=== PATIENT | female | born 1980 | race African-American/Black ===

== ENCOUNTER 2018-05-25 06:30 | Emergency (ER) | payer SELFPAY ==
[~2018-05-25] VITALS: Ht 175.3 cm; Wt 63.6 kg
[2018-05-25] MEDS ORDERED: KETO10TAB PO (07:24)
[2018-05-25] MEDS ORDERED: ACET30TAB PO (07:24)
[2018-05-25] MEDS ORDERED: ACETAMINOPH W/CODEINE #3 TAB UD PO ONE (07:30)
[2018-05-25 07:50] VITALS: BP 130/75
[2018-05-25] MEDS ORDERED: NORCOTAB PO (07:54)
--- NOTE | 2018-05-25 08:01 | REP ---
Left ribs for views: There is no rib fracture or other rib abnormality. PA chest: There is no pneumothorax, hemothorax or pulmonary contusion. There is no pleural thickening. There is a 3 mm lung nodule in the left costophrenic angle. There are no comparison studies to document stability. Electronically Signed by Olvin Miller MD 05/25/2018 07:53 A
== END 2018-05-25 08:55 | disposition home or self-care (01) ==
LOC: M ED 06:30
DX: S20.212A Contusion of left front wall of thorax, initial encounter (principal); W22.8XXA Striking against or struck by other objects, initial encounter; Y92.89 Other specified places as the place of occurrence of the external cause; Z88.0 Allergy status to penicillin; Z88.5 Allergy status to narcotic agent